=== PATIENT | male | born 1985 | race Caucasian/White ===

== ENCOUNTER → 2017-08-11 | Outpatient (CLI) | payer OTHER ==
[~2017-08-11] MED LIST: CICL15CR TP
== END ==
LOC: LAB 13:47
PROVIDERS: ATTEND Internal Medicine
DX: Z00.00 Encounter for general adult medical examination without abnormal findings (principal); M25.551 Pain in right hip
CPT/HCPCS: 81001

== ENCOUNTER → 2017-08-12 | Outpatient (CLI) | payer OTHER ==
--- NOTE | 2017-08-12 10:02 | RADIOLOGY IMAGING REPORT ---
FACILITY: [facility] - [place] PATIENT NAME: Collin Oliver : 1985 MR: [id number] V: [id number] EXAM DATE: ORDERING PHYSICIAN: SHAYLA MULTANI TECHNOLOGIST: [place] [facility] [place] : 1985 Visit/Account:[id number] Date of Sevice: 08/12/2017 AP pelvis, one view, and right hip, one view. HISTORY: Right hip pain. COMPARISON: None. The bony pelvis is unremarkable. The hips are normally aligned. No joint space narrowing. The sacroil iac joints and pubic symphysis are unremarkable. No acute fractures are identified. A few phleboliths are present in the true pelvis. IMPRESSION: Negative for acute bony abnormality. Report Dictated By: Yasmani Luz MD at 08/12/2017 9:58 AM Report E-Signed By: Yasmani Luz MD at 08/12/2017 9:59 AM WSN:[id number]
== END ==
LOC: RAD 08:36
PROVIDERS: ATTEND Internal Medicine
DX: Z00.00 Encounter for general adult medical examination without abnormal findings (principal); M25.551 Pain in right hip

== ENCOUNTER → 2017-08-12 | Outpatient (REF) ==
[2017-08-12 09:30] LABS: LDL CHOLESTEROL 100 mg/dl
== END ==
DX: Z02.9 Encounter for administrative examinations, unspecified (principal)

== ENCOUNTER → 2018-07-23 | Outpatient (REF) ==
[~2018-07-23] MED LIST changes: +FLUT16SP19 NS; +PRED20TA6 PO; +TRUPT PO
[2018-07-23 15:38] LABS: LDL CHOLESTEROL 96 mg/dl
== END ==
DX: Z02.9 Encounter for administrative examinations, unspecified (principal)

== ENCOUNTER → 2018-07-23 | Outpatient (CLI) | payer OTHER | LOC: LAB 15:04 | PROVIDERS: ATTEND Nurse Practitioner Primary Care | DX: R21 Rash and other nonspecific skin eruption (principal); R53.83 Other fatigue | CPT/HCPCS: 36415; 82728; 83540; 83550; 86703 ==

== ENCOUNTER → 2018-07-29 | Outpatient (CLI) | payer OTHER ==
[~2018-07-29] MED LIST changes: +AZIT-17 PO
== END ==
LOC: LAB 15:51
PROVIDERS: ATTEND Internal Medicine
DX: Z11.59 Encounter for screening for other viral diseases (principal); J03.90 Acute tonsillitis, unspecified
CPT/HCPCS: 87070

== ENCOUNTER → 2018-09-16 | Outpatient (CLI) | payer OTHER ==
[~2018-09-16] MED LIST changes: +TRIA15CR40 TP
== END ==
LOC: LAB 12:07
PROVIDERS: ATTEND Internal Medicine
DX: J02.9 Acute pharyngitis, unspecified (principal)
CPT/HCPCS: 87653

== ENCOUNTER → 2018-09-21 | Outpatient (CLI) | payer OTHER ==
[~2018-09-21] MED LIST changes: +CEFPR500PT PO; +MUPI22OI28 TP; +OMEP-126 PO
[2018-09-21 17:21] LABS: PLATELET COUNT, AUTOMATED 270 K/uL (150-450)
== END ==
LOC: LAB 16:26
PROVIDERS: ATTEND Internal Medicine
DX: J03.90 Acute tonsillitis, unspecified (principal); J06.9 Acute upper respiratory infection, unspecified
CPT/HCPCS: 36415; 82040; 82247; 82310; 82374; 82435; 82565; 82947; 84075; 84132; 84155; 84295; 84450; 84460; 84520; 85025; 85651; 86140; 86703; 87070